=== PATIENT | male | born 1955 | race Caucasian/White ===

== ENCOUNTER 2018-10-24 20:16 | Emergency (ER) | payer OTHER ==
[~2018-10-24] VITALS: Ht 188 cm; Wt 86.2 kg
[2018-10-24 20:19] VITALS: BP 139/71
--- NOTE | 2018-10-24 20:19 | NUR ---
TO BED # 09 AMBULATORY
--- NOTE | 2018-10-24 20:32 | NUR ---
PATIENT PRESENTS TO ED WITH C/O CP, SUBSTERNAL, UNPROVOKED, RADIATING TO THE L JAW, AT REST, 7/10 PAIN SINCE 1900 TODAY. PT DENIES N/V/D; SKIN IS PINK/WARM/DRY; AAOX4 WITH EVEN AND STEADY GAIT; LUNGS CLEAR BL; HR EVEN AND REGULAR; PT DENIES ANY FEVER, SOB, OR COUGH AT THIS TIME; PATIENT STATES PAIN OF 7/10 AT THIS TIME; VSS; PATIENT POSITIONED FOR COMFORT; HOB ELEVATED; BEDRAILS UP X2; BED DOWN. ER MD MADE AWARE OF PT STATUS.
--- NOTE | 2018-10-24 20:47 | NUR ---
Patient being evaluated by Dr. Rowe at bedside.
[2018-10-24] MEDS ORDERED: NITROGLYCERIN 0.4 MG TAB SL ONE (20:55)
[2018-10-24 21:11] LABS: BASOPHILS % (AUTO) 0.8 % (0.0-2.0); EOSINOPHILS # (AUTO) 0.1 K/uL (0-0.4); EOSINOPHILS % (AUTO) 2.8 % (0.0-4.0); HEMATOCRIT 45.4 % (36-52); HEMOGLOBIN 15.2 g/dL (12.0-18.0); LYMPHOCYTES # (AUTO) 1.2 K/uL (2.0-11.5); LYMPHOCYTES % (AUTO) 26.2 % (20.5-51.1); MEAN CORPUSCULAR HEMOGLOBIN 29 pg (27-31); MEAN CORPUSCULAR HGB CONC 34 g/dL (33-37); MEAN CORPUSCULAR VOLUME 87.1 fL (80-94); MONOCYTES # (AUTO) 0.4 K/uL (0.8-1.0); NEUTROPHILS # (AUTO) 2.7 K/uL (1.8-7.7); NEUTROPHILS % (AUTO) 60.2 % (42.2-75.2); PLATELET COUNT (AUTO) 95 K/uL (140-450); RED BLOOD CELL COUNT(AUTO) 5.22 MIL/uL (4.20-6.10); WHITE BLOOD COUNT (AUTO) 4.4 K/uL (4.8-10.8)
[2018-10-24 21:26] LABS: ALBUMIN 3.6 g/dL (3.4-5.0); ANION GAP 11.6 (8-16); CARBON DIOXIDE 28.1 mmol/L (21-32); CREATININE 1.1 mg/dL (0.7-1.3); POTASSIUM 3.7 mmol/L (3.5-5.1); TOTAL BILIRUBIN 0.3 mg/dL (0.0-1.0)
[2018-10-24 21:34] LABS: CREATINE KINASE MB 0.7 ng/mL (0-3.6)
--- NOTE | 2018-10-25 00:46 | NUR ---
Covering for primary RN. Pt resting comfortably in bed, warm blanket provided. Lights dimmed in room. Assisted pt into position of comfort. Pt updated on status of pending labs and UA was needed, pt verbalized understanding. VSS. Pt lying in bed watching movie on his phone with headphones in place. Chest pain resovled. 0/10 at thist jeannette.
[2018-10-25] MEDS ORDERED: PANTOPRAZOLE 40 MG INJ VIAL IVP ONE ×2 (01:15→01:35)
--- NOTE | 2018-10-25 02:26 | NUR ---
DR SMITH AT BEDSIDE
[2018-10-25 02:53] VITALS: BP 128/81
--- NOTE | 2018-10-25 02:53 | NUR ---
IV removed, catheter intact and site benign. Applied folded 4x4 gauze and tape to stop bleeding.
--- NOTE | 2018-10-25 02:53 | NUR ---
Patient discharged with v/s stable. Written and verbal after care instructions given and explained. Patient alert, oriented and verbalized understanding of instructions. Ambulatory with steady gait. All questions addressed prior to discharge. ID band removed. Patient advised to follow up with PMD. Rx of PROTONIX given. Patient educated on indication of medication including possible reaction and side effects. Opportunity to ask questions provided and answered.
== END 2018-10-25 02:53 | disposition home or self-care (01) ==
LOC: MED 20:16
DX: K21.9 Gastro-esophageal reflux disease without esophagitis (principal); Z88.8 Allergy status to other drugs, medicaments and biological substances
CPT/HCPCS: 36415; 71045; 80053; 82550; 82553; 84484; 85025; 85379; 86886; 86900; 86901; 93005; 96374; 99284; C9113; Q0092

== ENCOUNTER 2019-04-17 13:38 | Emergency (ER) | payer OTHER ==
[~2019-04-17] VITALS: Ht 188 cm; Wt 81.6 kg
[2019-04-17 13:53] VITALS: BP 108/74
--- NOTE | 2019-04-17 13:57 | NUR ---
PT AMBULATED TO ED [facility]
--- NOTE | 2019-04-17 14:58 | NUR ---
63/M C/O ALMOST DAILY DIARRHEA X 1.5 MONTHS. BMs ARE "WATERY" TO "MUSHY" TO "SOMETIMES EXPLOSIVE". ALSO STATED NAUSEA FOR 1.5 MONTHS. STATES DRANK SOME "BAD COCONUT MILK" BECAUSE ONSET OF SYMPTOMS. DENIES VOMITING AND FEVER. DENIES FOCAL ABD PAIN BUT STATES GENERALIZED GASSY PAIN. STATES 7/10 GEN BODY ACHES, CHRONIC, HX LUPUS AND FIBROMYALGIA. STATES DECREASED APPETITE AND UNINTENTIONAL WEIGHT LOSS OF 12-15 LBS IN LAST 1.5 MONTHS. NAD AT THIS TIME. NORMOACTIVE BOWEL SOUNDS. PMH: LUPUS, NEUROPATHY, POTS, FIBROMYALGIA
--- NOTE | 2019-04-17 15:29 | NUR ---
MONITOR WORKER AT BEDSIDE.
--- NOTE | 2019-04-17 15:29 | NUR ---
PT MADE AWARE OF PROCESS FOR STOOL AND URINE SAMPLE COLLECTION.
[2019-04-17] MEDS ORDERED: NACL 0.9% 1,000 ML IV ONE (15:35)
[2019-04-17] MEDS ORDERED: DICYCLOMINE 20 MG/2 ML VIAL IM ONE ×2 (15:35→15:37)
[2019-04-17 15:38] LABS: BASOPHILS % (AUTO) 0.9 % (0.0-2.0); EOSINOPHILS # (AUTO) 0.3 K/uL (0-0.4); EOSINOPHILS % (AUTO) 7.7 % (0.0-4.0); HEMATOCRIT 43.3 % (36-52); HEMOGLOBIN 14.2 g/dL (12.0-18.0); LYMPHOCYTES # (AUTO) 1.2 K/uL (2.0-11.5); LYMPHOCYTES % (AUTO) 25.7 % (20.5-51.1); MEAN CORPUSCULAR HEMOGLOBIN 29 pg (27-31); MEAN CORPUSCULAR HGB CONC 33 g/dL (33-37); MEAN CORPUSCULAR VOLUME 88.9 fL (80-94); MONOCYTES # (AUTO) 0.4 K/uL (0.8-1.0); MONOCYTES % (AUTO) 9.6 % (1.7-9.3); NEUTROPHILS # (AUTO) 2.5 K/uL (1.8-7.7); NEUTROPHILS % (AUTO) 56.1 % (42.2-75.2); PLATELET COUNT (AUTO) 89 K/uL (140-450); RED BLOOD CELL COUNT(AUTO) 4.87 MIL/uL (4.20-6.10); RED CELL DISTRIBUTION WIDTH 14.6 % (11.6-13.7); WHITE BLOOD COUNT (AUTO) 4.5 K/uL (4.8-10.8)
--- NOTE | 2019-04-17 15:41 | NUR ---
PT TO BATHROOM TO TRY AND PROVIDE URINE AND STOOL SAMPLE
[2019-04-17 15:50] LABS: ANION GAP 11.2 (8-16); CARBON DIOXIDE 27.9 mmol/L (21-32); CREATININE 1.4 mg/dL (0.7-1.3); POTASSIUM 4.1 mmol/L (3.5-5.1)
--- NOTE | 2019-04-17 16:05 | NUR ---
STOOL AND URINE SAMPLE GIVEN TO PROPERTY CUSTODIAN.
[2019-04-17 16:07] LABS: ALBUMIN 3.5 g/dL (3.4-5.0); TOTAL BILIRUBIN 0.3 mg/dL (0.0-1.0)
[2019-04-17 16:31] LABS: APPEARANCE,URINE SL CLOUDY (CLEAR); BILIRUBIN,URINE NEGATIVE (NEGATIVE); BLOOD, URINE NEGATIVE (NEGATIVE); COLOR,URINE YELLOW (YELLOW); LEUKOCYTE ESTERASE ,URINE TRACE (NEGATIVE); NITRITE, URINE POSITIVE (NEGATIVE); PH,URINE 6.5 (5.0-9.0); UGLUCOSE NEGATIVE (NEGATIVE)
--- NOTE | 2019-04-17 17:48 | NUR ---
PER LAB, NEED NEW STOOL SAMPLE. PT STATES HE IS UNABLE TO HAVE BM AT THIS TIME. Addendum: 04/17/19 at 1815 by OMEGA NONI CHOWDHURY NOTIFIED.
--- NOTE | 2019-04-17 18:18 | NUR ---
NONI CHOWDHURY SPEAKING WITH PT AT BEDSIDE.
--- NOTE | 2019-04-17 18:28 | NUR ---
Patient discharged with v/s stable. Written and verbal after care instructions given and explained. Patient alert, oriented and verbalized understanding of instructions. Ambulatory with steady gait. All questions addressed prior to discharge. ID band removed. Patient advised to follow up with PMD. Rx of BENTYL, IMODIUM, MACROBID given. Patient educated on indication of medication including possible reaction and side effects. Opportunity to ask questions provided and answered.
[2019-04-17 18:29] VITALS: BP 115/64
== END 2019-04-17 18:28 | disposition home or self-care (01) ==
LOC: MED 13:38
DX: K58.9 Irritable bowel syndrome, unspecified (principal); N39.0 Urinary tract infection, site not specified; Z88.8 Allergy status to other drugs, medicaments and biological substances
CPT/HCPCS: 36415; 80053; 81003; 85025; 87045; 87427; 96360; 96372; 99283; J0500

== ENCOUNTER 2019-05-08 13:16 | Emergency (ER) | payer OTHER ==
[~2019-05-08] VITALS: Ht 188 cm; Wt 81.6 kg
[2019-05-08 13:21] VITALS: BP 121/79
--- NOTE | 2019-05-08 13:28 | NUR ---
PT SENT TO ER LOBBY TO WAIT FOR AVAILABLE.
--- NOTE | 2019-05-08 13:46 | NUR ---
Patient ambulated to bed 2. RN evaluating patient at bedside.
--- NOTE | 2019-05-08 13:58 | NUR ---
63/M BIB SELF C/O RIGHT SIDED ABD PAIN WITH POLYURIA UTI; PT JUST FINISHED CIPRO X2 DAYS FOR A 10 DAYS TREATMENT. HX KIDNEY STONES, LYME DISEASE, LUPUS, FIBROMYALGIA. PATIENT STATES PAIN OF 8/10 AT THIS TIME. PATIENT POSITIONED FOR COMFORT; HOB ELEVATED; BEDRAILS UP X1; BED DOWN. ER MD MADE AWARE OF PT STATUS.
--- NOTE | 2019-05-08 16:01 | NUR ---
PT TAKEN TO CT.
[2019-05-08 16:05] LABS: APPEARANCE,URINE CLEAR (CLEAR); BILIRUBIN,URINE NEGATIVE (NEGATIVE); BLOOD, URINE NEGATIVE (NEGATIVE); COLOR,URINE YELLOW (YELLOW); LEUKOCYTE ESTERASE ,URINE NEGATIVE (NEGATIVE); NITRITE, URINE NEGATIVE (NEGATIVE); PH,URINE 5.5 (5.0-9.0); UGLUCOSE NEGATIVE (NEGATIVE)
[2019-05-08 16:24] LABS: BASOPHILS # (AUTO) 0.1 K/uL (0.00-0.22); BASOPHILS % (AUTO) 1.1 % (0.0-2.0); EOSINOPHILS # (AUTO) 0.2 K/uL (0-0.4); EOSINOPHILS % (AUTO) 4.7 % (0.0-4.0); HEMATOCRIT 47.6 % (36-52); HEMOGLOBIN 15.5 g/dL (12.0-18.0); LYMPHOCYTES % (AUTO) 21.1 % (20.5-51.1); MEAN CORPUSCULAR HEMOGLOBIN 29 pg (27-31); MEAN CORPUSCULAR HGB CONC 33 g/dL (33-37); MEAN CORPUSCULAR VOLUME 89.2 fL (80-94); MONOCYTES # (AUTO) 0.4 K/uL (0.8-1.0); MONOCYTES % (AUTO) 8.4 % (1.7-9.3); NEUTROPHILS # (AUTO) 3.2 K/uL (1.8-7.7); NEUTROPHILS % (AUTO) 64.7 % (42.2-75.2); PLATELET COUNT (AUTO) 122 K/uL (140-450); RED BLOOD CELL COUNT(AUTO) 5.34 MIL/uL (4.20-6.10); RED CELL DISTRIBUTION WIDTH 14.7 % (11.6-13.7)
[2019-05-08 16:44] LABS: ALBUMIN 4.1 g/dL (3.4-5.0); ANION GAP 10.8 (8-16); CARBON DIOXIDE 30.3 mmol/L (21-32); CREATININE 1.1 mg/dL (0.7-1.3); POTASSIUM 4.1 mmol/L (3.5-5.1); TOTAL BILIRUBIN 0.6 mg/dL (0.0-1.0)
--- NOTE | 2019-05-08 19:13 | NUR ---
Pt report given to AMBERLY ANDUJAR. Transfer of care at this time.
--- NOTE | 2019-05-08 19:15 | NUR ---
REPORT RECEIVED FROM CON ACEVEDO. ASSUMED CARE AT THIS TIME.
[2019-05-08 19:30] VITALS: BP 118/81
--- NOTE | 2019-05-08 19:30 | NUR ---
PT SEATED UPRIGHT IN BED. BEDRAIL X1 UP. WILL CONTINUE TO MONITOR.
--- NOTE | 2019-05-08 20:42 | NUR ---
Patient discharged with v/s stable. Written and verbal after care instructions given and explained BY DR. CHRIS. Patient verbalized understanding. Ambulatory with . All questions addressed prior to discharge. Advised to follow up with PMD.
== END 2019-05-08 20:42 | disposition home or self-care (01) ==
LOC: MED 13:16
DX: K76.89 Other specified diseases of liver (principal); Z87.442 Personal history of urinary calculi; Z98.890 Other specified postprocedural states; Z88.8 Allergy status to other drugs, medicaments and biological substances; Z91.040 Latex allergy status
CPT/HCPCS: 36415; 80053; 81003; 82150; 83690; 85025; 99284